=== PATIENT | female | born 1960 | race Caucasian/White ===

== ENCOUNTER → 2016-11-04 | Outpatient (CLI) | payer BC ==
--- NOTE | 2016-11-05 11:37 | MM ---
Reason for exam: screening (asymptomatic). Last mammogram was performed 1 year ago. History: Patient is postmenopausal. Family history of breast cancer in maternal aunt at age 60. Physical Findings: A clinical breast exam by your physician is recommended on an annual basis and results should be correlated with mammographic findings. MG Screening Mammo w CAD Bilateral CC and MLO view(s) were taken. Prior study comparison: November 02, 2015, bilateral MG screening mammo w CAD. June 13, 2014, bilateral MG screening mammo w CAD. No significant changes when compared with prior studies. ASSESSMENT: Negative, BI-RAD 1 RECOMMENDATION: Routine screening mammogram of both breasts in 1 year.
== END | disposition home or self-care (01) ==
LOC: RADMAMWWP 11:06
PROVIDERS: ATTEND Family Medicine
DX: Z12.31 Encounter for screening mammogram for malignant neoplasm of breast (principal)

== ENCOUNTER → 2017-11-13 | Outpatient (CLI) | payer BC ==
--- NOTE | 2017-11-14 09:13 | MM ---
Reason for exam: screening (asymptomatic). Last mammogram was performed 1 year ago. History: Patient is postmenopausal. Family history of breast cancer in maternal aunt at age 60. Physical Findings: A clinical breast exam by your physician is recommended on an annual basis and results should be correlated with mammographic findings. MG Screening Mammo w CAD Bilateral CC, MLO, and XCCL view(s) were taken. Prior study comparison: November 04, 2016, bilateral MG screening mammo w CAD. November 02, 2015, bilateral MG screening mammo w CAD. There are scattered fibroglandular densities. Asymmetric breast tissue right posterior upper outer quadrant is stable. There is no discrete abnormality. ASSESSMENT: Negative, BI-RAD 1 RECOMMENDATION: Routine screening mammogram of both breasts in 1 year.
== END | disposition home or self-care (01) ==
LOC: RADMAMWWP 11:17
PROVIDERS: ATTEND Family Medicine
DX: Z12.31 Encounter for screening mammogram for malignant neoplasm of breast (principal)
CPT/HCPCS: 77067

== ENCOUNTER 2017-11-17 07:35 | Day surgery (SDC) | payer BC ==
[2017-11-13 09:56] VITALS: BMI 34.0
[~2017-11-17 07:35] MED LIST: LACTATED RINGERS 1,000 ML IV SCH; LIDOCAINE 1% 20 ML VIAL (10MG/ML) FOR IV START INTRADERMA PRN; MIDAZOLAM 2 MG/2 ML VIAL IV PRN
[2017-11-17] MEDS ORDERED: LACTATED RINGERS 1,000 ML IV ONE (08:14)
[2017-11-17 08:22] VITALS: RESP 16; TEMP 98.7
[2017-11-17 08:32] LABS: Glucose,Whole Blood 82 mg/dL (75-99)
[2017-11-17] MEDS ORDERED: PROPOFOL 10 MG/ML 20 ML VIAL IV ONE (08:43)
[2017-11-17] MEDS ORDERED: LIDOCAINE 1% INJ 10MG/ML (20 ML MDV) ONE (08:43)
--- NOTE | 2017-11-17 09:10 | P.PCN ---
Date of Procedure: 11/17/17 Procedure(s) Performed: Procedure: Total colonoscopy and polypectomy. Preoperative diagnosis: Screening for neoplasia, patient has history of polyps. Postoperative diagnosis: Rectal polyp snared but no large polyps or cancer. Preparation: HalfLytely prep. Sedation: Was provided by anesthesia. Brief clinical history: The patient is a 57-year-old female who is scheduled for this evaluation because of history of polyps. Her last exam was in September 2012. The patient has no abdominal complaints, bleeding or anemia. Procedure: With the patient on her left lateral decubitus position and after informed consent and adequate sedation, the perianal area was inspected and it did not show any fissures or fistulas. There were no masses felt on digital rectal examination. The Olympus CFQ 160L video colonoscope was then inserted in the rectum in the usual fashion and advanced to the cecum. The mucosa appeared healthy. A 1 cm polyp was noted in the rectum within 2 cm from the anorectal junction. This was snared and retrieved by suctioning it to the tip of the endoscope and withdrawing the endoscope then restarting the exam. There were no other polyps or tumors or any other pathology. The endoscope was retroflexed in the rectum before it was withdrawn. The patient tolerated the procedure well. Plan: The patient was reassured. Will await pathology results. I suggested repeat colonoscopy in 5 years. She will follow-up with you as planned.
[2017-11-17 09:38] VITALS: BP 130/72; PULSE 68
== END 2017-11-17 09:55 | disposition home or self-care (01) ==
LOC: ORWHC2ENDO 07:35
DX: Z12.11 Encounter for screening for malignant neoplasm of colon (principal); K62.1 Rectal polyp; Z86.010 Personal history of colon polyps; E11.9 Type 2 diabetes mellitus without complications; Z79.84 Long term (current) use of oral hypoglycemic drugs; I10 Essential (primary) hypertension; E78.5 Hyperlipidemia, unspecified; E07.9 Disorder of thyroid, unspecified; E24.9 Cushing's syndrome, unspecified; Z79.890 Hormone replacement therapy; Z79.899 Other long term (current) drug therapy
CPT/HCPCS: 88305; 45385; J2001; J2704

== ENCOUNTER → 2019-01-04 | Outpatient (CLI) | payer BC ==
--- NOTE | 2019-01-05 18:49 | BD ---
EXAMINATION TYPE: Axial Bone Density DATE OF EXAM: 01/04/2019 COMPARISON: 11/02/2015 CLINICAL HISTORY: 58-year-old female screening for osteoporosis Height: 62.5 IN Weight: 204 LBS RISK FACTORS HISTORY OF: Active: YES Postmenopausal woman: TOTAL HYST AGE 51 MEDICATIONS: Thyroid Medications: YES Which medication: Synthroid How Lon YEARS Additional Medications: MULTI VIT, SYNTHROID, TRULICITY, KAZANO, LISINOPRIL, SIMVASTATIN, ZETONNA, LO VASA, FENOFIBRATE, TAMSULOSIN EXAM MEASUREMENTS: Bone mineral densitometry was performed using the [employer] System. Bone mineral density as measured about the Lumbar spine is: ----- L1-L4(G/cm2): 1.231 T Score Values are as follows: ----- L2: 0.8 ----- L3: 0.1 ----- L4: 0.2 ----- L1-L4: 0.4 Bone mineral density has: Increased 8.8% since study of: 11/02/2015 Bone mineral density about the R hip (g/cm2): 0.886 Bone mineral density about the L hip (g/cm2): 0.923 T Score values are as follows: -----R Neck: -1.1 -----L Neck: -0.8 -----R Total: -1.2 -----L Total: -0.6 Bone mineral density has: Decreased -5.9% since study of: 11/02/2015 IMPRESSION: Osteopenia (T Score between -2.5 and -1). There is slightly increased risk of fracture and the patient may be considered for treatment. Re-Screen 2-5 years. NOTE: T-SCORE=SD OF THE YOUNG ADULT MEAN.
--- NOTE | 2019-01-06 09:26 | MM ---
Reason for exam: screening (asymptomatic). Last mammogram was performed 1 year and 2 months ago. History: Patient is postmenopausal. Family history of breast cancer in maternal aunt at age 60. Physical Findings: A clinical breast exam by your physician is recommended on an annual basis and results should be correlated with mammographic findings. MG Screening Mammo w CAD Bilateral CC and MLO view(s) were taken. Prior study comparison: November 13, 2017, bilateral MG screening mammo w CAD. November 04, 2016, bilateral MG screening mammo w CAD. There are scattered fibroglandular densities. No significant changes when compared with prior studies. ASSESSMENT: Negative, BI-RAD 1 RECOMMENDATION: Routine screening mammogram of both breasts in 1 year.
== END | disposition home or self-care (01) ==
LOC: RADBDWWP 16:20
PROVIDERS: ATTEND Family Medicine
DX: Z12.31 Encounter for screening mammogram for malignant neoplasm of breast (principal); Z13.820 Encounter for screening for osteoporosis; M85.80 Other specified disorders of bone density and structure, unspecified site
CPT/HCPCS: 77067; 77080

== ENCOUNTER → 2020-01-06 | Outpatient (CLI) | payer BC ==
--- NOTE | 2020-01-07 09:10 | MM ---
Reason for exam: screening (asymptomatic). Last mammogram was performed 1 year ago. History: Patient is postmenopausal. Family history of breast cancer in maternal aunt at age 60. Physical Findings: A clinical breast exam by your physician is recommended on an annual basis and results should be correlated with mammographic findings. MG Screening Mammo w CAD Bilateral CC and MLO view(s) were taken. Prior study comparison: January 04, 2019, bilateral MG screening mammo w CAD. November 13, 2017, bilateral MG screening mammo w CAD. There are scattered fibroglandular densities. No significant changes when compared with prior studies. ASSESSMENT: Benign, BI-RAD 2 RECOMMENDATION: Routine screening mammogram of both breasts in 1 year.
== END | disposition home or self-care (01) ==
LOC: RADMAMWWP 10:12
PROVIDERS: ATTEND Family Medicine
DX: Z12.31 Encounter for screening mammogram for malignant neoplasm of breast (principal)
CPT/HCPCS: 77067

== ENCOUNTER → 2021-03-22 | Outpatient (CLI) | payer BC ==
--- NOTE | 2021-03-23 11:30 | MM ---
Reason for exam: screening (asymptomatic). Last mammogram was performed 1 year and 2 months ago. History: Patient is postmenopausal. Family history of breast cancer in maternal aunt at age 60. Physical Findings: A clinical breast exam by your physician is recommended on an annual basis and results should be correlated with mammographic findings. MG Screening Mammo w CAD Bilateral CC and MLO view(s) were taken. Prior study comparison: January 06, 2020, bilateral MG screening mammo w CAD. January 04, 2019, bilateral MG screening mammo w CAD. There are scattered fibroglandular densities. Finding: There is a 5 mm equal density (isodense), oval mass in the upper quadrant of the right breast. ASSESSMENT: Incomplete: need additional imaging evaluation, BI-RAD 0 RECOMMENDATION: Special view mammogram of the right breast. If lesion persists on supplemental views, image directed ultrasound is recommended. [facility] will attempt to contact patient to return for supplemental views and ultrasound if indicated.
== END | disposition home or self-care (01) ==
LOC: RADMAMWWP 06:56
PROVIDERS: ATTEND Family Medicine
DX: Z12.31 Encounter for screening mammogram for malignant neoplasm of breast (principal); Z80.3 Family history of malignant neoplasm of breast; Z78.0 Asymptomatic menopausal state
CPT/HCPCS: 77067

== ENCOUNTER → 2021-03-30 | Outpatient (CLI) | payer BC ==
--- NOTE | 2021-03-30 11:11 | MM ---
Reason for exam: additional evaluation requested from abnormal screening. Last mammogram was performed less than 1 month ago. History: Patient is postmenopausal. Family history of breast cancer in maternal aunt at age 60. Physical Findings: Nurse did not find any significant physical abnormalities on exam. MG Work Up Mamm w CAD RT LM and spot compression MLO view(s) were taken of the right breast. Prior study comparison: March 22, 2021, bilateral MG screening mammo w CAD. January 06, 2020, bilateral MG screening mammo w CAD. January 04, 2019, bilateral MG screening mammo w CAD. There are scattered fibroglandular densities. No distinct lesion persists middle depth upper aspect right breast. These results were verbally communicated with the patient and result sheet given to the patient on 03/30/21. ASSESSMENT: Negative, BI-RAD 1 RECOMMENDATION: Return to routine screening mammogram schedule for both breasts.
== END | disposition home or self-care (01) ==
LOC: RADMAMWWP 10:25
PROVIDERS: ATTEND Family Medicine
DX: R92.2 Inconclusive mammogram (principal); Z80.3 Family history of malignant neoplasm of breast
CPT/HCPCS: 77065

== ENCOUNTER 2021-04-05 17:30 | Observation (INO) | payer BC ==
[2021-04-05] MEDS ORDERED: SODIUM CHLORIDE 0.9% 500 ML 500 ML IV STA (18:45)
[2021-04-05] MEDS ORDERED: predniSONE 20 MG TAB PO STA (18:46)
[2021-04-05 19:07] LABS: ALT 29 U/L (4-34); AST 27 U/L (14-36); African American GFR (CKD) >90 (>60 ml/min/1.73 sqM); Albumin 4.4 g/dL (3.5-5.0); Alkaline Phosphatase 49 U/L (38-126); Anion Gap 10 mmol/L; Basophils % (A) 0 %; Blood Urea Nitrogen 27 mg/dL (7-17); Calcium 10.6 mg/dL (8.4-10.2); Carbon Dioxide 25 mmol/L (22-30); Chloride 102 mmol/L (98-107); Eosinophils # (A) 0.2 k/uL (0-0.7); Eosinophils % (A) 2 %; Glucose 130 mg/dL (74-99); HCT 40.5 % (34.0-46.0); HGB 13.3 gm/dL (11.4-16.0); Lymphocytes # (A) 2.6 k/uL (1.0-4.8); Lymphocytes % (A) 25 %; MCH 28.9 pg (25.0-35.0); MCHC 32.9 g/dL (31.0-37.0); Mean Platelet Volume 7.4; Monocytes # (A) 0.5 k/uL (0-1.0); Monocytes % (A) 4 %; Neutrophils # (A) 6.9 k/uL (1.3-7.7); Neutrophils % (A) 66 %; Non-African American GFR(CKD) 81 (>60 ml/min/1.73 sqM); Platelet Count 319 k/uL (150-450); Potassium 4.1 mmol/L (3.5-5.1); RBC 4.61 m/uL (3.80-5.40); RDW 13.1 % (11.5-15.5); Sodium 137 mmol/L (137-145); Total Bilirubin 0.2 mg/dL (0.2-1.3); WBC 10.3 k/uL (3.8-10.6)
[2021-04-05 19:13] LABS: INR 0.9 (<1.2); Partial Thromboplastin Time 22.6 sec (22.0-30.0); Prothrombin Time 9.8 sec (9.0-12.0)
--- NOTE | 2021-04-05 19:46 | CT ---
EXAMINATION TYPE: CT brain wo con for TPA DATE OF EXAM: 04/05/2021 COMPARISON: None HISTORY: Left sided facial numbness CT DLP: 1055.4 mGycm Automated exposure control for dose reduction was used. Helical imaging through the brain. FINDINGS: There is no hemorrhage or hydrocephalus. Brain density is normal. Calvarium is intact. Inflammatory c hange present in the sphenoid sinus. Calvarium is intact. Orbits are symmetric. IMPRESSION: CORRELATE FOR SPHENOID SINUSITIS.
[2021-04-05] MEDS ORDERED: ASPIRIN 325 MG TAB PO STA (19:56)
--- NOTE | 2021-04-05 20:18 | XR ---
EXAMINATION TYPE: XR chest 2V DATE OF EXAM: 04/05/2021 COMPARISON: NONE HISTORY: Altered mental status TECHNIQUE: Frontal and lateral views of the chest are obtained. FINDINGS: There is no focal air space opacity, pleural effusion, or pneumothorax seen. The cardiac silhouette size is within normal limits. Patient is rotated. There are overlying leads. The osseous structures are intact. IMPRESSION: No acute cardiopulmonary process.
--- NOTE | 2021-04-05 21:04 | ED ---
General Adult HPI - General Chief complaint: Neuro Symptoms/Deficit Stated complaint: left side facial numbness Time Seen by Provider: 04/05/21 18:36 Source: patient, RN notes reviewed, old records reviewed Mode of arrival: ambulatory Limitations: no limitations - History of Present Illness Initial comments: 60-year-old female who had presented with left-sided facial weakness. This began this morning when she woke, she noticed that she had some puffiness to the left eye and some drainage from the eye. There was concern that she may have contracted the pink eye. She was started on antibiotic drops. This progressed to facial weakness throughout the day. Patient cannot raise her eyebrow, she cannot smile on the left. She has no limb weakness or numbness. No previous history of TIA or CVA. She does have history of diabetes, hypercholesterolemia, and hypertension. - Related Data Home Medications Medication Instructions Recorded Confirmed Fenofibrate [Lofibra] 160 mg PO DAILY 11/13/17 04/05/21 Levothyroxine Sodium [Synthroid] 75 mcg PO DAILY 11/13/17 04/05/21 Lisinopril [Zestril] 10 mg PO DAILY 11/13/17 04/05/21 [place]-3 Acid Ethyl Esters [Lovaza] 2 gm PO BID 11/13/17 04/05/21 Simvastatin [Zocor] 20 mg PO HS 11/13/17 04/05/21 Tamsulosin [Flomax] 0.4 mg PO HS 11/13/17 04/05/21 Dulaglutide [Trulicity] 1.5 mg SQ MO 04/05/21 04/05/21 Glimepiride [Amaryl] 3 mg PO DAILY 04/05/21 04/05/21 metFORMIN HCL [Glucophage] 1,000 mg PO BID 04/05/21 04/05/21 Allergies Allergy/AdvReac Type Severity Reaction Status Date / Time No Known Allergies Allergy Verified 04/05/21 20:23 Review of Systems ROS Statement: Those systems with pertinent positive or pertinent negative responses have been documented in the HPI. ROS Other: All systems not noted in ROS Statement are negative. 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 Absent: tenderness, meningismus Respiratory exam: Present: normal lung sounds bilaterally. Absent: respiratory distress, wheezes, rales Cardiovascular Exam: Present: regular rate, normal rhythm GI/Abdominal exam: Present: soft. Absent: distended, tenderness Extremities exam: Present: normal inspection, normal capillary refill. Absent: pedal edema Neurological exam: Present: alert, oriented X3, motor sensory deficit (left facial droop, there is no sparing of the forehead, no speech abnormality). Absent: CN II-XII intact Psychiatric exam: Present: normal affect, normal mood Skin exam: Present: warm, dry, intact. Absent: cyanosis, diaphoretic Course Vital Signs 04/05/21 04/05/21 04/05/21 17:36 19:00 20:00 Temperature 98.2 F Pulse Rate 75 77 70 Respiratory 18 20 20 Rate Blood Pressure 158/72 135/69 137/71 O2 Sat by Pulse 97 97 95 Oximetry EKG Findings - EKG Comments: EKG Findings:: EKG: Normal sinus rhythm, rate of 69, MA interval 166, QRS duration 98, QTC 433, no ST segment elevation. Medical Decision Making - Medical Decision Making 60-year-old female presenting with left facial weakness which began upon wakening. She is presenting to the emergency department at approximate 6 PM. Symptoms have been present throughout the entire day and began upon wakening. She is not a TPA candidate. Her symptoms are suggestive of a developing Del Cid's palsy however she has significant risk factors. CT brain is performed which is negative for intracranial hemorrhage or mass effect. She is in sinus rhythm. She has no laboratory abnormalities. She's given aspirin for the possibility of CVA and a prednisone for the possibility of Del Cid's palsy. She will be admitted to internal medicine, case discussed with Dr. Price who will admit. Neurology will be placed on consult. - Lab Data Result diagrams: 04/05/21 18:51 04/05/21 18:51 Lab Results 04/05/21 04/05/21 04/05/21 Range/Units 18:51 18:51 18:51 WBC 10.3 (3.8-10.6) k/uL RBC 4.61 (3.80-5.40) m/uL Hgb 13.3 (11.4-16.0) gm/dL Hct 40.5 (34.0-46.0) % MCV 88.0 (80.0-100.0) fL MCH 28.9 (25.0-35.0) pg MCHC 32.9 (31.0-37.0) g/dL RDW 13.1 (11.5-15.5) % Plt Count 319 (150-450) k/uL MPV 7.4 Neutrophils % 66 % Lymphocytes % 25 % Monocytes % 4 % Eosinophils % 2 % Basophils % 0 % Neutrophils # 6.9 (1.3-7.7) k/uL Lymphocytes # 2.6 (1.0-4.8) k/uL Monocytes # 0.5 (0-1.0) k/uL Eosinophils # 0.2 (0-0.7) k/uL Basophils # 0.0 (0-0.2) k/uL PT 9.8 (9.0-12.0) sec INR 0.9 (<1.2) APTT 22.6 (22.0-30.0) sec Sodium 137 (137-145) mmol/L Potassium 4.1 (3.5-5.1) mmol/L Chloride 102 (98-107) mmol/L Carbon Dioxide 25 (22-30) mmol/L Anion Gap 10 mmol/L BUN 27 H (7-17) mg/dL Creatinine 0.80 (0.52-1.04) mg/dL Est GFR (CKD-EPI)AfAm >90 (>60 ml/min/1.73 sqM) Est GFR (CKD-EPI)NonAf 81 (>60 ml/min/1.73 sqM) Glucose 130 H (74-99) mg/dL Calcium 10.6 H (8.4-10.2) mg/dL Total Bilirubin 0.2 (0.2-1.3) mg/dL AST 27 (14-36) U/L ALT 29 (4-34) U/L Alkaline Phosphatase 49 (38-126) U/L Troponin I (0.000-0.034) ng/mL Total Protein 7.0 (6.3-8.2) g/dL Albumin 4.4 (3.5-5.0) g/dL 04/05/21 Range/Units 18:51 WBC (3.8-10.6) k/uL RBC (3.80-5.40) m/uL Hgb (11.4-16.0) gm/dL Hct (34.0-46.0) % MCV (80.0-100.0) fL MCH (25.0-35.0) pg MCHC (31.0-37.0) g/dL RDW (11.5-15.5) % Plt Count (150-450) k/uL MPV Neutrophils % % Lymphocytes % % Monocytes % % Eosinophils % % Basophils % % Neutrophils # (1.3-7.7) k/uL Lymphocytes # (1.0-4.8) k/uL Monocytes # (0-1.0) k/uL Eosinophils # (0-0.7) k/uL Basophils # (0-0.2) k/uL PT (9.0-12.0) sec INR (<1.2) APTT (22.0-30.0) sec Sodium (137-145) mmol/L Potassium (3.5-5.1) mmol/L Chloride (98-107) mmol/L Carbon Dioxide (22-30) mmol/L Anion Gap mmol/L BUN (7-17) mg/dL Creatinine (0.52-1.04) mg/dL Est GFR (CKD-EPI)AfAm (>60 ml/min/1.73 sqM) Est GFR (CKD-EPI)NonAf (>60 ml/min/1.73 sqM) Glucose (74-99) mg/dL Calcium (8.4-10.2) mg/dL Total Bilirubin (0.2-1.3) mg/dL AST (14-36) U/L ALT (4-34) U/L Alkaline Phosphatase (38-126) U/L Troponin I <0.012 (0.000-0.034) ng/mL Total Protein (6.3-8.2) g/dL Albumin (3.5-5.0) g/dL Disposition Clinical Impression: Weakness on left side of face, Cerebrovascular accident (CVA) Disposition: ADMITTED IP TO THIS [facility] Condition: Stable Is patient prescribed a controlled substance at d/c from ED?: No Referrals: Onidna Murray DO [Primary Care Provider] - 1-2 days Decision to Admit Reason: Admit from EC Decision Date: 04/05/21 Decision Time: 21:04
[2021-04-05] MEDS: SODIUM CHLORIDE 0.9% 1,000 ML IV SCH (21:24)
[2021-04-05] MEDS ORDERED: TAMSULOSIN 0.4 MG CAP.ER.24H PO SCH (23:30)
[2021-04-05] MEDS: metFORMIN 500 MG TAB PO SCH (23:38)
--- NOTE | 2021-04-05 23:46 | US ---
EXAMINATION TYPE: US carotid duplex BILAT DATE OF EXAM: 04/05/2021 COMPARISON: CT CLINICAL HISTORY: Stenosis. Left-sided facial numbness. Hx hypertension, hyperlipidemia. Stenosis per order. EXAM MEASUREMENTS: RIGHT: Peak Systolic Velocity (PSV) cm/sec ----- Right CCA: 91.5 ----- Right ICA: 99.8 ----- Right ECA: 121.1 ICA/CCA ratio: 1.1 RIGHT: End Diastole cm/sec ----- Right CCA: 23.1 ----- Right ICA: 19.8 ----- Right ECA: 23.7 LEFT: Peak Systolic Velocity (PSV) cm/sec ----- Left CCA: 112.0 ----- Left ICA: 93.5 ----- Left ECA: 90.4 ICA/CCA ratio: 0.8 LEFT: End Diastole cm/sec ----- Left CCA: 30.2 ----- Left ICA: 22.5 ----- Left ECA: 17.9 VERTEBRALS (direction of flow): Right Vertebral: Antegrade Left Vertebral: Antegrade Rhythm: Normal No elevated velocities at this time. ICA appears very tortuous bilaterally, limited evaluation. Minim al plaque within left bulb. IMPRESSION: There is antegrade flow in the vertebral arteries. The images and measurements suggest l ess than 10% stenosis in both internal carotid arteries. Criteria for Assigning % of Stenosis / Diameter reduction (Estimation based on the indirect measurements of the internal carotid artery velocities (ICA PSV). 1. Normal (no stenosis)=ICA PSV < 125 cm/s: ratio < 2.0: ICA EDV<40 cm/s. 2. Less than 50% stenosis=ICA PSV < 125 cm/s: ratio < 2.0: ICA EDV<40 cm/s. 3. 50 to 69% stenosis=ICA PSV of 125 to 230 cm/s: ration 2.0 ? 4.0: ICA EDV 40-100 cm/s. 4. Greater than 70% stenosis to near occlusion= ICA PSV > 230 cm/s: ratio > 4.0: ICA EDV > 100 cm/s. 5. Near occlusion= ICA PSV velocities may be low or undetectable: variable ratio and ICA EDV. 6. Total occlusion=unable to detect flow.
[2021-04-06] MEDS ORDERED: LEVOTHYROXINE 75 MCG TAB PO SCH (06:30)
[2021-04-06 06:38] LABS: African American GFR (CKD) >90 (>60 ml/min/1.73 sqM); Anion Gap 8 mmol/L; Blood Urea Nitrogen 22 mg/dL (7-17); Calcium 9.6 mg/dL (8.4-10.2); Carbon Dioxide 26 mmol/L (22-30); Chloride 107 mmol/L (98-107); Glucose 211 mg/dL (74-99); Magnesium 2.1 mg/dL (1.6-2.3); Non-African American GFR(CKD) >90 (>60 ml/min/1.73 sqM); Potassium 4.9 mmol/L (3.5-5.1); Sodium 141 mmol/L (137-145)
[2021-04-06] MEDS: metFORMIN 500 MG TAB PO SCH (08:21)
[2021-04-06] MEDS: SODIUM CHLORIDE 0.9% 1,000 ML IV SCH (08:22)
[2021-04-06] MEDS ORDERED: lisinopriL 10 MG TAB PO SCH (09:00)
[2021-04-06] MEDS ORDERED: GLIMEPIRIDE 2 MG TAB PO SCH (09:00)
[2021-04-06] MEDS ORDERED: FAMOTIDINE 20 MG/2 ML VIAL IV SCH (09:00)
[2021-04-06] MEDS ORDERED: predniSONE 20 MG TAB PO SCH (09:00)
[2021-04-06] MEDS ORDERED: FENOFIBRATE 160 MG TAB PO SCH (09:00)
[2021-04-06] MEDS ORDERED: HEPARIN SODIUM,PORCINE/PF 5,000 UNIT/0.5 ML SYRINGE SQ SCH (09:00)
[2021-04-06] MEDS ORDERED: ASPIRIN 325 MG TAB PO SCH (09:00)
--- NOTE | 2021-04-06 10:01 | P.CNNES ---
History of Present Illness Consult date: 04/06/21 Requesting physician: Ren Elizalde Reason for Consult: Left facial weakness History of Present Illness: Patient is a 60-year-old female with history of hypertension, diabetes, hyperlipidemia came to the hospital yesterday at 5:30 PM for new onset left facial weakness. Patient states that she woke up yesterday morning at 8 AM and felt her face was puffy. She was noticing her eyes were watering. She was concerned she was having a pink eye, saw her primary physician. Subsequently she noticed that her left side of the face was droopy. As the day went on, it continued to get worse. She sat down to eat and was noticing difficulty eating because felt like the left side of the face was in a novocaine shot. Patient also has been noticing some metallic taste in the mouth. She is noticing excessive lacrimation. Denies any slurred speech, diplopia, any symptoms related to the extremities or balance issues. Patient states that she has been having some occipital headaches off and on even now she has low-grade headache across the occipital region. Vital signs on arrival blood pressure 158/72, pulse of 75, temperature 98.2. Blood test shows normal CBC, PT/PTT, Chem-7 and hepatic panel. Coronavirus PCR negative. Troponin negative. Computed tomography scan of head showed correlate for sphenoid sinusitis. Chest x-ray shows no acute quadriparetic process. EKG shows normal sinus rhythm. Carotid Doppler revealed antegrade flow in the vertebral arteries. Less than 10% stenosis in both ICAs. Patient currently takes Flomax, simvastatin 20 mg, levothyroxine, lisinopril 10 mg, fenofibrate 160 mg, metformin, Amaryl, Trulicity and Lovaza Patient has diabetes for 10 years, hypertension, hyperlipidemia. She never smoked but she has been exposed to passive smoking through her parents and her . Review of Systems As above in detail. All other review of systems unremarkable. 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 History of Any Multi-Drug Resistant Organisms: None Reported Past Surgical History: Hysterectomy, Tonsillectomy Past Psychological History: No Psychological Hx Reported Smoking Status: Never smoker Past Alcohol Use History: Rare Past Drug Use History: None Reported Medications and Allergies Home Medications Medication Instructions Recorded Confirmed Type Fenofibrate [Lofibra] 160 mg PO DAILY 11/13/17 04/05/21 History Levothyroxine Sodium [Synthroid] 75 mcg PO DAILY 11/13/17 04/05/21 History Lisinopril [Zestril] 10 mg PO DAILY 11/13/17 04/05/21 History [place]-3 Acid Ethyl Esters [Lovaza] 2 gm PO BID 11/13/17 04/05/21 History Simvastatin [Zocor] 20 mg PO HS 11/13/17 04/05/21 History Tamsulosin [Flomax] 0.4 mg PO HS 11/13/17 04/05/21 History Dulaglutide [Trulicity] 1.5 mg SQ MO 04/05/21 04/05/21 History Glimepiride [Amaryl] 3 mg PO DAILY 04/05/21 04/05/21 History metFORMIN HCL [Glucophage] 1,000 mg PO BID 04/05/21 04/05/21 History Allergies Allergy/AdvReac Type Severity Reaction Status Date / Time No Known Allergies Allergy Verified 04/05/21 20:23 Physical Examination - Vital Signs Vital Signs: Vital Signs Temp Pulse Resp BP Pulse Ox 04/06/21 07:27 79 18 137/81 97 04/05/21 23:39 73 20 161/85 98 04/05/21 21:25 71 20 128/65 94 L 04/05/21 20:00 70 20 137/71 95 04/05/21 19:00 77 20 135/69 97 04/05/21 17:36 98.2 F 75 18 158/72 97 Intake and Output 04/05/21 04/06/21 04/06/21 22:59 06:59 14:59 Other: Weight 102.965 kg Patient is middle aged female, in no acute distress. Patient is alert awake oriented to time place and person. Speech and language functions are normal. Attention, concentration and fund of knowledge is adequate. On cranial examination, pupils are round and reacting to light, visual jimenez are full on confrontation, with no neglect on double simultaneous stimulation. Her extraocular muscles are intact with no nystagmus. Patient has left facial weakness, peripheral type, with involvement of the upper and lower part of the face. Her tongue protrudes to the midline. Palatal elevation and sensation normal, hearing and shoulder shrug normal, facial sensation normal. Shoulder shrug normal. On muscle strength testing, there is no pronator drift and the strength is normal in arms and legs distally and proximally. Deep tendon reflexes are 1 in the upper limbs, 2 at the knees, 1 ankles and plantars downgoing bilaterally. Sensory to touch is equal with no neglect. Cerebellar function showed no ataxia for [id number] testing. No dysdiadochokinesia. Tone and bulk of muscles normal. Gait normal. On general examination, there is no carotid bruit or murmur, S1-S2 audible. Abdomen is soft nontender. Chest is clear. Peripheral pulses are present. No edema. Results - Laboratory Findings CBC and BMP: 04/05/21 18:51 04/06/21 05:40 Abnormal Lab Findings: Abnormal Labs 04/05/21 04/06/21 18:51 05:40 BUN 27 H 22 H Glucose 130 H 211 H Calcium 10.6 H Assessment and Plan Assessment: * Left Del Cid's palsy, almost complete. * Diabetes * Hypertension * Hyperlipidemia Plan: * Prednisone 60 mg daily for 7 days then decrease by 10 mg daily until off. * Valtrex 1 g 3 times a day for 7 days * At present patient is closing her eyelid therefore no need for artificial tears. * Patient was informed to watch her blood sugars, avoid excessive calories and high salt diet while she takes prednisone. * Carotid Doppler is normal. * Neurologically clear for discharge.
[2021-04-06 10:56] LABS: Chol/HDL Ratio 3.31 Ratio; LDL Cholesterol,Calculated 96.1 mg/dL (0.0-131.0)
--- NOTE | 2021-04-06 11:42 | ECHOF ---
Referral Reason:Thrombus MEASUREMENTS -------- HEIGHT: 162.6 cm WEIGHT: 103.0 kg BP: IVSd: 1.5 cm (0.6 - 1.1) LVIDd: 3.8 cm (3.9 - 5.3) LVPWd: 1.5 cm (0.6 - 1.1) EDV(Teich): 64 ml IVSs: 1.8 cm LVIDs: 1.9 cm LVPWs: 2.0 cm %IVS Thck: 27 % ESV(Teich): 11 ml EF(Teich): 83 % %FS: 51 % SV(Teich): 53 ml RVIDd: 3.5 cm (< 3.3) IVC: 20.16 mm LALs A4C: 5.7 cm LAAs A4C: 20.9 cm LAESV A-L A4C: 66 ml LAESV MOD A4C: 57 ml LALs A2C: 5.5 cm LAAs A2C: 18.7 cm LAESV A-L A2C: 55 ml LAESV MOD A2C: 52 ml LAESV(A-L): 61 ml LAESV Index (A-L): 29.45 ml/m Ao Diam: 3.2 cm (2.0 - 3.7) LA Diam: 3.4 cm (2.7 - 3.8) AV Cusp: 2.3 cm (1.5 - 2.6) EPSS: 0.5 cm MV E Jairo: 0.77 m/s MV DecT: 193 ms MV Dec Larue: 4.0 m/s MV A Jairo: 0.68 m/s MV E/A Ratio: 1.14 MV PHT: 56 ms MR Vmax: 4.61 m/s MR maxP.10 mmHg AV Vmax: 1.27 m/s AV maxP.44 mmHg AR Vmax: 1.32 m/s AR maxP.98 mmHg AR PHT: 239 ms AR Dec Time: 823 ms AR Dec Larue: 1.6 m/s TR Vmax: 2.07 m/s TR maxP.19 mmHg RAP: 5.00 mmHg RVSP: 22.19 mmHg MV EF SLOPE: 81.83 mm/s (70 - 150) MV EXCURSION: 15.86 mm (> 18.000) FINDINGS -------- This was a technically good study. The left ventricular size is normal. There is moderate concentric left ventricular hypertrophy. O verall left ventricular systolic function is normal with, an EF between 55 - 60 %. The diastolic fi lling pattern is normal for the age of the patient 11.20. The right ventricle is mildly enlarged. The left atrial size is normal. The right atrial size is normal. Unable to visualize the septum. The aortic valve is trileaflet and appears structurally normal. Trace amount of aortic regurgitatio n. The mitral valve is normal. Mild mitral annular calcification present. Mild mitral regurgitation is present. The tricuspid valve appears structurally normal. Trace tricuspid regurgitation present. Right veronika tricular systolic pressure is normal at < 35 mmHg. There is no pulmonic regurgitation present. The aortic root size is normal. Normal inferior vena cava with normal inspiratory collapse consistent with estimated right atrial pre ssure of 5 mmHg. Echo free space indicative of a pericardial fat pad. CONCLUSIONS -------- 1. The left ventricular size is normal. 2. There is moderate concentric left ventricular hypertrophy. 3. Overall left ventricular systolic function is normal with, an EF between 55 - 60 %. 4. The diastolic filling pattern is normal for the age of the patient 11.20 5. The right ventricle is mildly enlarged. 6. Trace amount of aortic regurgitation. 7. Mild mitral annular calcification present. 8. Mild mitral regurgitation is present. 9. Trace tricuspid regurgitation present. 10. Echo free space indicative of a pericardial fat pad. FRET SAW OPERATOR: Chayo Carranza RDCS
--- NOTE | 2021-04-06 12:11 | P.HPIM ---
History of Present Illness H&P Date: 04/06/21 This is a very pleasant 60-year-old female who was brought to the emergency department by family yesterday with left-sided facial numbness that she noticed had been progressively getting worse throughout the day. Patient states she followed up with her primary care provider and was prescribed an eyedrop as she was recently exposed to pinkeye from a coworker at work and thought that her left eye tearing and irritation was possibly pinkeye. Patient states she noticed at dinnertime the difficulty in eating and continued left facial droop and came to the emergency department. On arrival patient had CT of the brain done which shows no hemorrhage or hydrocephalus, brain density is normal, infl ammatory changes present in the sphenoid sinus and calvarium is intact to correlate for sphenoid sinusitis.chest x-ray showed no acute cardiopulmonary process. EKG was normal sinus rhythm. carotid Doppler shows less than 10% stenosis in both internal carotid arteries with no elevated velocities at this time minimal plaque noted within the left bulb. 2-D echo was also ordered and done which shows overall LV systolic function is normal with an EF of 55-60% mild mitral regurgitation present, trace tricuspid regurgitation present and some moderate concentric left ventricular hypertrophy. She does have a past medical history of diabetes mellitus, [id number], hyperlipidemia, hypertension, thyroid disorder, Roni's. Patient denies ever being a smoker although was exposed to secondhand smoke and denies any other alcohol or drugs. Patient does follow with Dr. Hart in the outpatient setting.labs on arrival within normal limits with a mildly elevated glucose, troponin was negative, COVID-19 was negative and repeat BMP this morning is within normal limits. Neurology has been consulted to evaluate the patient. Review of Systems Constitutional: Denies chills, Denies fever Eyes: left irritation (increased tearing) Cardiovascular: Denies chest pain, Denies shortness of breath Respiratory: Denies cough Gastrointestinal: Denies abdominal pain, Denies diarrhea, Denies nausea, Denies vomiting Genitourinary: Denies dysuria, Denies hematuria Musculoskeletal: Denies myalgias Integumentary: Denies pruritus, Denies rash Neurological: Reports numbness, Reports sensory deficit Psychiatric: Denies anxiety, Denies depression Endocrine: Denies fatigue, Denies weight change Past Medical History Past Medical History: Diabetes Mellitus, Hyperlipidemia, Hypertension, Thyroid Disorder 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 History of Any Multi-Drug Resistant Organisms: None Reported Past Surgical History: Hysterectomy, Tonsillectomy Past Psychological History: No Psychological Hx Reported Smoking Status: Never smoker Past Alcohol Use History: Rare Past Drug Use History: None Reported Medications and Allergies Home Medications Medication Instructions Recorded Confirmed Type Fenofibrate [Lofibra] 160 mg PO DAILY 11/13/17 04/05/21 History Levothyroxine Sodium [Synthroid] 75 mcg PO DAILY 11/13/17 04/05/21 History Lisinopril [Zestril] 10 mg PO DAILY 11/13/17 04/05/21 History [place]-3 Acid Ethyl Esters [Lovaza] 2 gm PO BID 11/13/17 04/05/21 History Simvastatin [Zocor] 20 mg PO HS 11/13/17 04/05/21 History Tamsulosin [Flomax] 0.4 mg PO HS 11/13/17 04/05/21 History Dulaglutide [Trulicity] 1.5 mg SQ MO 04/05/21 04/05/21 History Glimepiride [Amaryl] 3 mg PO DAILY 04/05/21 04/05/21 History metFORMIN HCL [Glucophage] 1,000 mg PO BID 04/05/21 04/05/21 History Allergies Allergy/AdvReac Type Severity Reaction Status Date / Time No Known Allergies Allergy Verified 04/05/21 20:23 Physical Exam Vitals: Vital Signs Temp Pulse Resp BP Pulse Ox 04/06/21 07:27 79 18 137/81 97 04/05/21 23:39 73 20 161/85 98 04/05/21 21:25 71 20 128/65 94 L 04/05/21 20:00 70 20 137/71 95 04/05/21 19:00 77 20 135/69 97 04/05/21 17:36 98.2 F 75 18 158/72 97 Intake and Output 04/05/21 04/06/21 04/06/21 22:59 06:59 14:59 Other: Weight 102.965 kg Gen: This is a 60-year-old female awake, alert and oriented 3, well-developed, well-nourished. HEENT: Head is atraumatic, normocephalic. Pupils equal, round. Sclerae is anicteric. left lower eyelid drooping with some left side facial droop noted NECK: Supple. No JVD. No lymphadenopathy. No thyromegaly. LUNGS: Clear to auscultation. No wheezes or rhonchi. No intercostal retraction s. HEART: Regular rate and rhythm. No murmur. ABDOMEN: Soft. Bowel sounds are present. No masses. No tenderness. EXTREMITIES: No pedal edema. No calf tenderness. NEUROLOGICAL: Patient is awake, alert and oriented x3. no focal deficit noted. 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 Appropriate home medications have been resumed. Patient will be started on Valtrex along with prednisone and will require a taper which will be ordered on discharge. Patient to follow up with neurology in the outpatient setting along with primary care provider.Recommend close monitoring of blood sugars as blood sugars will most likely be elevated due to steroids. Patient will likely be discharged today. Time with Patient: Greater than 30
[2021-04-06 14:13] VITALS: BP 126/80; PULSE 72; RESP 16; TEMP 98.4
[2021-04-06] MEDS ORDERED: valACYclovir HCL 1,000 MG TABLET PO SCH (16:00)
[2021-04-06] MEDS ORDERED: valACYclovir 500 MG TAB PO SCH (16:00)
[2021-04-06] MEDS ORDERED: FAMOTIDINE 20 MG TAB PO SCH (21:00)
[2021-04-06] MEDS ORDERED: ATORVASTATIN 40 MG TAB PO SCH (21:00)
--- NOTE | 2021-04-09 13:35 | P.DS ---
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 Patient will follow-up with Dr. Plunkett in the outpatient setting upon di areli. Patient is to continue with hemodialysis as scheduled. Total time taken is greater than 35 minutes. Hospital course This is a very pleasant 60-year-old female who was brought to the emergency department by family yesterday with left-sided facial numbness that she noticed had been progressively getting worse throughout the day. Patient states she followed up with her primary care provider and was prescribed an eyedrop as she was recently exposed to pinkeye from a coworker at work and thought that her left eye tearing and irritation was possibly pinkeye. Patient states she noticed at dinnertime the difficulty in eating and continued left facial droop and came to the emergency department. On arrival patient had CT of the brain done which shows no hemorrhage or hydrocephalus, brain density is normal, inflammatory changes present in the sphenoid sinus and calvarium is intact to correlate for sphenoid sinusitis.chest x-ray showed no acute cardiopulmonary process. EKG was normal sinus rhythm. carotid Doppler shows less than 10% stenosis in both internal carotid arteries with no elevated velocities at this time minimal plaque noted within the left bulb. 2-D echo was also ordered and done which shows overall LV systolic function is normal with an EF of 55-60% mild mitral regurgitation present, trace tricuspid regurgitation present and some moderate concentric left ventricular hypertrophy. She does have a past medical history of diabetes mellitus, [id number], hyperlipidemia, hypertension, thyroid disorder, Roni's. Patient denies ever being a smoker although was exposed to secondhand smoke and denies any other alcohol or drugs. Patient does follow with Dr. Hart in the outpatient setting.labs on arrival within normal limits with a mildly elevated glucose, troponin was negative, COVID-19 was negative and repeat BMP this morning is within normal limits. Neurology has been consulted to evaluate the patient. Patient has been seen and evaluated by neurology and started on high-dose steroid and will continue with a longer high-dose steroid taper which has been sent to the pharmacy. Patient will also continue on acyclovir for 1 week and will have outpatient follow-up with neurology for Del Cid's palsy. Patient instructed and encouraged to monitor closely if drooping of the eye persists and may use paper tape during sleep and continue with eyedrops. Patient also instructed to follow-up with primary care provider on discharge. She encouraged to monitor blood sugars closely as they will be elevated with prednisone. Verbalized understanding. Currently no reports of chest pain, shortness of breath, or palpitations. Patient is afebrile. No reports of nausea or vomiting and patient is tolerating diet. Patient will be discharged home today. Gen: This is a 60-year-old female awake, alert and oriented 3, well-developed, well-nourished. HEENT: Head is atraumatic, normocephalic. Pupils equal, round. Sclerae is anicteric. left lower eyelid drooping with some left side facial droop noted NECK: Supple. No JVD. No lymphadenopathy. No thyromegaly. LUNGS: Clear to auscultation. No wheezes or rhonchi. No intercostal retractions. HEART: Regular rate and rhythm. No murmur. ABDOMEN: Soft. Bowel sounds are present. No masses. No tenderness. EXTREMITIES: No pedal edema. No calf tenderness. NEUROLOGICAL: Patient is awake, alert and oriented x3. no focal deficit noted. Please refer to medication reconciliation sheet for a list of medications. Patient Condition at Discharge: Stable Plan - Discharge Summary New Discharge Prescriptions: New predniSONE 10 mg PO DIRECTED 12 Days #40 tab valACYclovir HCL [Valtrex] 1,000 mg PO TID 7 Days #21 tablet Continue Tamsulosin [Flomax] 0.4 mg PO HS Simvastatin [Zocor] 20 mg PO HS Levothyroxine Sodium [Synthroid] 75 mcg PO DAILY [place]-3 Acid Ethyl Esters [Lovaza] 2 gm PO BID Lisinopril [Zestril] 10 mg PO DAILY Fenofibrate [Lofibra] 160 mg PO DAILY metFORMIN HCL [Glucophage] 1,000 mg PO BID Glimepiride [Amaryl] 3 mg PO DAILY Dulaglutide [Trulicity] 1.5 mg SQ MO Discharge Medication List Fenofibrate [Lofibra] 160 mg PO DAILY 11/13/17 [History] Levothyroxine Sodium [Synthroid] 75 mcg PO DAILY 11/13/17 [History] Lisinopril [Zestril] 10 mg PO DAILY 11/13/17 [History] [place]-3 Acid Ethyl Esters [Lovaza] 2 gm PO BID 11/13/17 [History] Simvastatin [Zocor] 20 mg PO HS 11/13/17 [History] Tamsulosin [Flomax] 0.4 mg PO HS 11/13/17 [History] Dulaglutide [Trulicity] 1.5 mg SQ MO 04/05/21 [History] Glimepiride [Amaryl] 3 mg PO DAILY 04/05/21 [History] metFORMIN HCL [Glucophage] 1,000 mg PO BID 04/05/21 [History] predniSONE 10 mg PO DIRECTED 12 Days #40 tab 04/06/21 [Rx] valACYclovir HCL [Valtrex] 1,000 mg PO TID 7 Days #21 tablet 04/06/21 [Rx] Follow up Appointment(s)/Referral(s): Ondina Hart DO [Primary Care Provider] - 1-2 days Hussain Worley MD [Medical Doctor] - 1 Week Activity/Diet/Wound Care/Special Instructions: activity Limited until follow-up Follow-up with primary care provider on discharge Continue taking medications as prescribed Continue to monitor eyes for continued tearing and may use a paper tape lightly if eyelids are remaining open while sleeping Follow-up with neurology outpatient Continue to monitor blood sugars closely as they will be elevated due to steroids Discharge Disposition: HOME SELF-CARE
== END 2021-04-06 14:12 | disposition home or self-care (01) ==
LOC: EC 17:30 → 3SCARD 20:58
PROVIDERS: ADMIT Internal Medicine; ATTEND Internal Medicine
DX: R20.0 Anesthesia of skin (principal); G51.0 Bell's palsy; E11.65 Type 2 diabetes mellitus with hyperglycemia; E78.5 Hyperlipidemia, unspecified; I10 Essential (primary) hypertension; E03.9 Hypothyroidism, unspecified; R63.30 Feeding difficulties, unspecified; E24.9 Cushing's syndrome, unspecified; E78.00 Pure hypercholesterolemia, unspecified; R51.9 Headache, unspecified; H02.402 Unspecified ptosis of left eyelid; I65.23 Occlusion and stenosis of bilateral carotid arteries; Z77.22 Contact with and (suspected) exposure to environmental tobacco smoke (acute) (chronic); Z20.822 Contact with and (suspected) exposure to COVID-19; Z20.89 Contact with and (suspected) exposure to other communicable diseases; Z79.899 Other long term (current) drug therapy; Z79.890 Hormone replacement therapy; Z79.84 Long term (current) use of oral hypoglycemic drugs; Z90.710 Acquired absence of both cervix and uterus; Z71.3 Dietary counseling and surveillance; Z68.39 Body mass index [BMI] 39.0-39.9, adult
CPT/HCPCS: 96361 ×2; 96372; 96374; 99285; 36415; 93005; 93306; 80061; 80053; 80048; 83735; 84484; 85025; 85610; 85730; 87635; 71046; 93880; 70450; G0378 ×2; J7512 ×2; J1644

== ENCOUNTER → 2022-04-10 | Outpatient (CLI) | payer BC ==
--- NOTE | 2022-04-11 09:07 | MM ---
Reason for Exam: Screening (asymptomatic). Last screening mammogram was performed 12 month(s) ago. Patient History: Menarche at age 13. First Full-Term at age 21. Left ovary removed at age 51. Right ovary removed at age 51. Hysterectomy at age 51. Postmenopausal. Maternal aunt had breast cancer, age 60. Risk Values: Danuta 5 year model risk: 1.3%. NCI Lifetime model risk: 6.6%. Prior Study Comparison: 01/06/2020 Bilateral Screening Mammogram, [facility]. 03/22/2021 Bilateral Screening Mammogram, [facility]. 03/30/2021 Right Diagnostic Mammogram, [facility]. Tissue Density: There are scattered fibroglandular densities. Findings: Analyzed By CAD. There is no suspicious group of microcalcifications or new suspicious mass in either breast. No significant change from prior exams. Overall Assessment: Negative, BI-RAD 1 Management: Screening Mammogram of both breasts in 1 year. A clinical breast exam by your physician is recommended on an annual basis and results should be correlated with mammographic findings. Electronically signed and approved by: Porfirio Luo D.O.
--- NOTE | 2022-04-11 17:08 | BD ---
EXAMINATION TYPE: Axial Bone Density DATE OF EXAM: 04/10/2022 CLINICAL HISTORY: 61 years old Female. ICD-10 CODE: Z13.820 SCREENING FOR OSTEOPOROSIS Height: 63 Weight: 236 FRAX RISK QUESTIONS: Alcohol (3 or more units per day): no Family History (Parent hip fracture): no Glucocorticoids (More than 3mos): no (Ex: prednisone, prednisolone, methylprednisolone, dexamethasone, and hydrocortisone). History of Fracture in Adulthood: no Secondary Osteoporosis: 1. Type 1 Diabetes: no 2. Hyperthyroidism: no 3. Menopause before 45: no 4. Malnutrition: no 5. Chronic liver disease: no Rheumatoid Arthritis: no Current Tobacco Use: no RISK FACTORS HISTORY OF: Family History of Osteoporosis: no Active: no Diet low in dairy products/other sources of calcium: no Postmenopausal woman: yes Lost more than 2 inches in height since high school: no MEDICATIONS: Thyroid Medications: Which medication: Synthroid How Lon YRS. Additional Medications: YES METFORMIN EXAM MEASUREMENTS: Bone mineral densitometry was performed using the [employer] System. Bone mineral density as measured about the Lumbar spine is: ----- L1-L4(G/cm2): 1.151 T Score Values are as follows: ----- L1: -0.1 ----- L2: 0.7 ----- L3: -0.6 ----- L4: -0.9 ----- L1-L4: -0.2 Bone mineral density has: Decreased 6.5% since study of: 01/04/2019 Bone mineral density about the R hip (g/cm2): 0.788 Bone mineral density about the L hip (g/cm2): 0.831 T Score values are as follows: -----R Neck: -1.8 -----L Neck: -1.5 -----R Total: -1.4 -----L Total: -0.6 Bone mineral density has: Decreased -1.7% since study of: 01/04/2019 FRAX%s: The graph provided illustrates a 8.0% chance for a major osteoporotic fx and a 0.8% chance fo r the hips probability for fx in 10 years time. IMPRESSION: Osteopenia (T Score between -2.5 and -1). There is slightly increased risk of fracture and the patient may be considered for treatment. Re-Screen 2-5 years. NOTE: T-SCORE=SD OF THE YOUNG ADULT MEAN.
== END | disposition home or self-care (01) ==
LOC: RADMAMWWP 15:18
PROVIDERS: ATTEND Family Medicine
DX: Z12.31 Encounter for screening mammogram for malignant neoplasm of breast (principal); Z13.820 Encounter for screening for osteoporosis; M85.89 Other specified disorders of bone density and structure, multiple sites; Z78.0 Asymptomatic menopausal state; Z80.3 Family history of malignant neoplasm of breast
CPT/HCPCS: 77067; 77080

== ENCOUNTER → 2023-04-23 | Outpatient (CLI) | payer BC ==
--- NOTE | 2023-04-24 08:41 | MM ---
Reason for Exam: Screening (asymptomatic). Last mammogram was performed 1 year(s) and 1 month(s) ago. Patient History: Menarche at age 13. First Full-Term at age 21. Left ovary removed at age 51. Right ovary removed at age 51. Hysterectomy at age 51. Postmenopausal. Maternal aunt had breast cancer, age 60. Risk Values: Danuta 5 year model risk: 1.3%. NCI Lifetime model risk: 6.4%. Prior Study Comparison: 03/22/2021 Bilateral Screening Mammogram, [facility]. 03/30/2021 Right Diagnostic Mammogram, [facility]. 04/10/2022 Bilateral MG screening mammo w CAD, [facility]. Tissue Density: The breast tissue is almost entirely fat. Findings: Analyzed By CAD. There is no suspicious group of microcalcifications or new suspicious mass. Overall Assessment: Negative, BI-RAD 1 Management: Screening Mammogram of both breasts in [address] [facility] will attempt to contact patient to return for supplemental views and ultrasound if indicated. Patient should continue monthly self-breast exams. A clinical breast exam by your physician is recommended on an annual basis. This exam should not preclude additional follow-up of suspicious palpable abnormalities. Note on Danuta scores and lifetime risk: 1. A Danuta score greater than 3% is considered moderate risk. If this is the case, consider specialist referral to assess eligibility for a risk reducing agent. 2. If overall lifetime risk for the development of breast cancer is 20% or higher, the patient may qualify for future screening with alternating mammogram and breast MRI. Electronically signed and approved by: Ren Long DO
== END | disposition home or self-care (01) ==
LOC: RADMAMWWP 15:45
PROVIDERS: ATTEND Family Medicine
DX: Z12.31 Encounter for screening mammogram for malignant neoplasm of breast (principal); Z78.0 Asymptomatic menopausal state; Z80.3 Family history of malignant neoplasm of breast
CPT/HCPCS: 77067

== ENCOUNTER 2023-07-02 08:07 | Day surgery (SDC) | payer BC ==
[2023-06-25 15:03] VITALS: BMI 38.6
[~2023-07-02 08:07] MED LIST changes: -LIDOCAINE 1% 20 ML VIAL (10MG/ML) FOR IV START INTRADERMA PRN; -MIDAZOLAM 2 MG/2 ML VIAL IV PRN
[2023-07-02 08:41] LABS: Glucose,Whole Blood 120 mg/dL (70-110)
[2023-07-02 08:49] VITALS: RESP 16; TEMP 97.1
[2023-07-02] MEDS ORDERED: PROPOFOL 10 MG/ML 20 ML VIAL IV ONE (09:10)
[2023-07-02] MEDS: LACTATED RINGERS 1,000 ML IV ONE ×2 (09:11→09:17)
[2023-07-02] MEDS ORDERED: LACTATED RINGERS 1,000 ML IV ONE (09:11)
--- NOTE | 2023-07-02 09:31 | P.PCN ---
Date of Procedure: 07/02/23 Procedure(s) Performed: BRIEF HISTORY: Patient is a 63-year-old pleasant white female scheduled for an elective colonoscopy as a part of evaluation of prior history of colon polyps. Last colonoscopy was 5 years ago. PROCEDURE PERFORMED: Colonoscopy with snare polypectomy. PREOPERATIVE DIAGNOSIS: History of colon polyps. IV sedation per Anesthesia. PROCEDURE: After informed consent was obtained, the patient, was brought into the endoscopy unit. IV sedation was administered by Anesthesia under continuous monitoring. Digital rectal examination was normal. Initially the Olympus CF-160 flexible video colonoscope was then inserted in the rectum, gradually advanced into the cecum without any difficulty. Careful examination was performed as the scope was gradually being withdrawn. Ileocecal valve and the appendiceal orifice were visualized and appeared normal. Prep was excellent. Mucosa of the cecum and 1 cm polyp that was removed by snare polypectomy. Rest of the, ascending colon, transverse colon, descending colon, sigmoid colon, and rectum appeared normal. Rectal sigmoid: There was a 1 cm polyp removed by snare polypectomy Retroflexion was performed in the rectum and no lesions were seen. The patient tolerated the procedure well. IMPRESSION: 1 cm cecal polyp status post snare polypectomy 1 cm rectosigmoid polyp status post snare polypectomy RECOMMENDATIONS: Findings of this examination were discussed with the patient as well as her family. She was advised to follow with the biopsy results. If the biopsy result adenoma she can have a repeat colonoscopy in 3 years.
[2023-07-02 09:59] LABS: Glucose,Whole Blood 103 mg/dL (70-110)
[2023-07-02 10:01] VITALS: BP 140/84; PULSE 84
== END 2023-07-02 10:03 ==
LOC: ORWHC2ENDO 08:07
PROVIDERS: ATTEND Internal Medicine Gastroenterology
DX: Z12.11 Encounter for screening for malignant neoplasm of colon (principal); D12.0 Benign neoplasm of cecum; K62.1 Rectal polyp; I10 Essential (primary) hypertension; E78.5 Hyperlipidemia, unspecified; E11.9 Type 2 diabetes mellitus without complications; E07.9 Disorder of thyroid, unspecified; Z86.010 Personal history of colon polyps; Z79.890 Hormone replacement therapy; Z79.899 Other long term (current) drug therapy; Z79.84 Long term (current) use of oral hypoglycemic drugs; Z79.85 Long-term (current) use of injectable non-insulin antidiabetic drugs
CPT/HCPCS: 45385; J2704; 88305

== ENCOUNTER → 2024-10-12 | Outpatient (CLI) | payer BC ==
--- NOTE | 2024-10-12 20:46 | BD ---
EXAMINATION TYPE: Axial Bone Density DATE OF EXAM: 10/12/2024 CLINICAL HISTORY: 64 years old Female. ICD-10 CODE: Z78.0 POST MENOPAUSAL , Additional History: Height: 62.5 in Weight: 222 lbs MEDICATIONS: Thyroid Medications: yes Which medication: Synthroid How Lon+ years EXAM MEASUREMENTS: Bone mineral densitometry was performed using the [employer] System. Bone mineral density as measured about the Lumbar spine is: ----- L1-L4(G/cm2): 1.182 T Score Values are as follows: ----- L1: 0.4 ----- L2: 0.2 ----- L3: -0.2 ----- L4: -0.3 ----- L1-L4: 0.0 Z Score Values are as follows: ----- L1: 0.7 ----- L2: 0.5 ----- L3: 0.0 ----- L4: 0.0 ----- L1-L4: 0.3 Bone mineral density has: Increased 2.7% since study of: 04/10/2022 Bone mineral density about the R hip (g/cm2): 0.779 Bone mineral density about the L hip (g/cm2): 0.890 T Score values are as follows: -----R Neck: -2.0 -----L Neck: -1.5 -----R Total: -1.8 -----L Total: -0.9 Z Score values are as follows: -----R Neck: -1.4 -----L Neck: -0.8 -----R Total: -1.5 -----L Total: -0.7 Bone mineral density has: Decreased -5.2% since study of: 04/10/2022 FRAX%s: The graph provided illustrates a 9.3% chance for a major osteoporotic fx and a 1.2% chance fo r the hips probability for fx in 10 years time. IMPRESSION: Osteopenia (T Score between -2.5 and -1). There is slightly increased risk of fracture and the patient may be considered for treatment. Re-Screen 2-5 years. NOTE: T-SCORE=SD OF THE YOUNG ADULT MEAN. [facility], , 10/12/2024 8:43 PM
--- NOTE | 2024-10-13 07:15 | MM ---
Reason for Exam: Screening (asymptomatic). Last mammogram was performed 1 year(s) and 5 month(s) ago. Patient History: Menarche at age 13. First Full-Term at age 21. Left ovary removed at age 51. Right ovary removed at age 51. Hysterectomy at age 51. Postmenopausal. Maternal aunt had breast cancer, age 60. Risk Values: Danuta 5 year model risk: 1.4%. NCI Lifetime model risk: 6.0%. Tissue Density: There are scattered areas of fibroglandular density. Findings: There is stable 3 to 4 mm circumscribed tiny mass in the middle depth outer aspect left breast. There is no suspicious new group of microcalcifications or new suspicious mass in either breast. Overall Assessment: Negative, BI-RAD 1 Management: Screening Mammogram of both breasts in 1 year. . Patient should continue monthly self-breast exams. A clinical breast exam by your physician is recommended on an annual basis. This exam should not preclude additional follow-up of suspicious palpable abnormalities. Note on Danuta scores and lifetime risk: 1. A Danuta score greater than 3% is considered moderate risk. If this is the case, consider specialist referral to assess eligibility for a risk reducing agent. 2. If overall lifetime risk for the development of breast cancer is 20% or higher, the patient may qualify for future screening with alternating mammogram and breast MRI. [facility], , 10/13/2024 7:12 AM. Electronically signed and approved by: Ponce Awad M.D.
== END | disposition home or self-care (01) ==
LOC: RADMAMWWP 14:56
PROVIDERS: ATTEND Family Medicine
DX: Z12.31 Encounter for screening mammogram for malignant neoplasm of breast (principal); Z78.0 Asymptomatic menopausal state; R92.323 Mammographic fibroglandular density, bilateral breasts; Z80.3 Family history of malignant neoplasm of breast
CPT/HCPCS: 77063; 77067; 77080